=== PATIENT | female | born 1975 ===

== ENCOUNTER 2017-01-22 06:19 | Day surgery (SDC) | payer OTHER ==
[2017-01-16 14:00] VITALS: BMI 30.9
[2017-01-22 07:13] LABS: BASO # 0.03 K/mm3 (0.0-2.0); BASO % 0.5 % (0.0-3.0); EOS # 0.1 (0.0-0.7); GRAN # 2.8 (1.4-6.5); GRAN % 47.5 % (50.0-68.0); HEMATOCRIT 48.2 % (36.0-48.0); LYMPH # 2.4 (1.2-3.4); LYMPH % 41.4 % (22.0-35.0); MEAN CELL VOLUME 81.6 fl (80.0-105.0); MEAN CORPUSCULAR HEMOGLOBIN 26.9 pg (25.0-35.0); MEAN PLATELET VOLUME 10.3 fl (7.0-11.0); MONO # 0.5 (0.1-0.6); MONO % 8.6 % (1.0-6.0); RED CELL DISTRIBUTION WIDTH 13.8 % (11.5-14.5); WHITE BLOOD COUNT 5.9 10^3/ul (4.5-11.0)
[2017-01-22 07:25] LABS: INR 1.1 (0.93-1.08)
[2017-01-22 07:35] LABS: BLOOD UREA NITROGEN 14 mg/dL (7-21); CALCIUM 9.4 mg/dL (8.4-10.5); CARBON DIOXIDE 32 mmol/L (21-33); CHLORIDE 98 mmol/L (98-107); CHOLESTEROL 191 mg/dL (130-200); GFR AFRICAN-AMERICAN > 60; GLUCOSE,RANDOM 96 mg/dL (70-110); POTASSIUM 3.6 mmol/L (3.6-5.0); SODIUM 139 mmol/L (132-148)
[2017-01-22] MEDS ORDERED: Lidocaine 2% Inj (20ml) ONE ×2 (07:43→08:35)
[2017-01-22] MEDS ORDERED: Midazolam 2 MG/2 ML VIAL ONE ×3 (07:44→08:24)
[2017-01-22] MEDS ORDERED: Iodixanol 320 MG/ML 100 ML BOTTLE IV ONE (07:45)
[2017-01-22] MEDS ORDERED: Iohexol 350mgl/ml 50 ML ONE (07:45)
[2017-01-22] MEDS ORDERED: Iodixanol 320 MG/ML 200 ML BOTTLE IV ONE (07:45)
[2017-01-22] MEDS ORDERED: Nitroglycerin 50mg in D5W 50 MG/250 ML BOTTLE IV ONE (08:38)
[2017-01-22] MEDS ORDERED: Sodium Chloride 0.9% 1,000 ML IV SCH (09:15)
--- NOTE | 2017-01-22 09:44 | CARDCATH ---
PROCEDURE DATE: 01/22/2017 HISTORY: The patient is a 41-year-old woman who presents with accelerated hypertension. In addition, she complains of persistent exertional chest pain during any kind of exercise. She underwent a stress test which was abnormal. Because of this, cardiac catheterization was recommended. PROCEDURE: Left heart catheterization with coronary arteriography, left ventriculogram, selective renal arteriogram were performed. There were no complications. I performed moderate sedation which included the presence of an independent trained observer that assisted in monitoring the patient's level of consciousness and physiologic status. After administration of Versed and fentanyl, my intraservice time was greater than 15 minutes. The right femoral artery was cannulated with a 6-Amharic sheath. The findings on catheterization revealed a left ventricle that contracted normally. Estimated ejection fraction is 60-65%. Her coronary anatomy revealed a codominant circulation. The RCA was free of significant disease. The left main artery was unremarkable. The circumflex artery and obtuse marginal branches were free of significant disease. The LAD revealed a 20-30% stenosis in the midportion. The diagonal vessels were free of significant disease. The patient received 200 mcg of IC nitroglycerin which resulted in no change in the 20-30% stenosis of the LAD. Selective renal arteriograms were performed. The renal arteries and kidney sizes were within normal limits. Manual compression was used to close the femoral artery site. The patient tolerated the procedure well. In summary, the procedure revealed a 20-30% stenosis in the mid LAD which did not change with nitroglycerin, with the rest of coronary artery being within normal limits. LV function is within normal limits. Selective bilateral renal arteriograms revealed normal renal arteries. Given these findings, the patient's symptoms are not of cardiac origin. 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 This may be the cause of much of her symptomatology. I have discussed with the patient about a cardiac risk reduction program including blood pressure control as well as dietary changes. Gil Bruner MD
[2017-01-22 09:56] VITALS: TEMP 97.4
[2017-01-22 13:41] VITALS: BP 109/65; PULSE 85; RESP 16; O2SAT 97
== END 2017-01-22 16:00 | disposition home or self-care (01) ==
LOC: CATH 06:19
PROVIDERS: ATTEND Internal Medicine Cardiovascular Disease
DX: R07.9 Chest pain, unspecified (principal); I10 Essential (primary) hypertension
CPT/HCPCS: 36415; 80048; 80061; 84703; 85025; 85610; 85730; 86850; 86900; 93458; 99152; 99153; C1769; C2629; J1644; J2250; J3010; J7030; J7040; Q9967